=== PATIENT | female | born 1980 | race Caucasian/White ===

== ENCOUNTER 2020-05-27 11:03 | Inpatient (IN) | payer OTHER ==
[2020-05-27] MEDS ORDERED: SODIUM CHLORIDE 0.9% 1,000 ML IV STA (12:12)
--- NOTE | 2020-05-27 12:14 | ED ---
Abdominal Pain HPI - General Chief Complaint: Abdominal Pain Stated Complaint: abd pain Time Seen by Provider: 05/27/20 11:21 Source: patient Mode of arrival: ambulatory Limitations: no limitations - History of Present Illness Initial Comments: 39-year-old female patient presents to the emergency department today for evaluation of abdominal pain and vomiting. Patient states that she started to have some discomfort a couple of nights ago. States last evening the pain became more intense. States she mostly had pain in her back/flank region. States last evening the pain moved around into her abdomen. States she is having pain in the right upper and right lower quadrant. States she has been nauseated and did have episode of vomiting last night. Has not had anything to eat or drink today. Denies any fever or chills. Denies any hematuria, dysuria, urinary frequency, urinary urgency. Denies any history of surgery other than C- section. Does currently have an IUD. Patient denies any recent rash, cough, shortness of breath, chest pain, diarrhea, constipation, back pain, numbness, tingling, dizziness, weakness, headache, visual changes, or any other complaints. - Related Data Allergies Allergy/AdvReac Type Severity Reaction Status Date / Time Penicillins Allergy Rash/Hives Verified 05/27/20 11:15 Review of Systems ROS Statement: Those systems with pertinent positive or pertinent negative responses have been documented in the HPI. ROS Other: All systems not noted in ROS Statement are negative. Past Medical History Past Medical History: Asthma History of Any Multi-Drug Resistant Organisms: None Reported Past Surgical History: Section Past Psychological History: Anxiety Smoking Status: Current every day smoker Past Alcohol Use History: None Reported Past Drug Use History: Marijuana General Exam Limitations: no limitations General appearance: alert, in no apparent distress, other (Physical well- developed, well-nourished adult female patient in no acute distress. Vital signs upon presentation are temperature 98.0F, pulse 6096, respirations 18, blood pressure 117/68, pulse ox 96% on room air.) ENT exam: Present: normal exam, normal oropharynx, mucous membranes moist Respiratory exam: Present: normal lung sounds bilaterally. Absent: respiratory distress, wheezes, rales, rhonchi, stridor Cardiovascular Exam: Present: regular rate, normal rhythm, normal heart sounds. Absent: systolic murmur, diastolic murmur, rubs, gallop, clicks GI/Abdominal exam: Present: soft, tenderness (Right upper quadrant, right lower quadrant tenderness), normal bowel sounds. Absent: distended, guarding, rebound, rigid Neurological exam: Present: alert, oriented X3, CN II-XII intact Psychiatric exam: Present: normal affect, normal mood Skin exam: Present: warm, dry, intact, normal color. Absent: rash Course Vital Signs 05/27/20 11:11 Temperature 98.0 F Pulse Rate 96 Respiratory 18 Rate Blood Pressure 117/68 O2 Sat by Pulse 96 Oximetry Medical Decision Making - Medical Decision Making 39-year-old male patient presented to the emergency department today for evaluation of right-sided abdominal pain radiating through to her back. She is also having nausea and one episode of vomiting last evening. She is afebrile. Labs reviewed and did reveal white blood cell count is 17.8. CT abdomen and pelvis was obtained and did show evidence for moderate to severe acute uncomplicated appendicitis. Patient does have a penicillin ALLERGY so I did start Rocephin and Flagyl. Case was discussed with Dr. Duffy. Plan for surgery. Case discussed also with my attending Dr. Wilson. - Lab Data Result diagrams: 05/27/20 12:31 05/27/20 12:31 Lab Results 05/27/20 05/27/20 05/27/20 Range/Units 12:02 12:02 12:31 WBC 17.8 H (3.8-10.6) k/uL RBC 4.57 (3.80-5.40) m/uL Hgb 14.9 (11.4-16.0) gm/dL Hct 42.8 (34.0-46.0) % MCV 93.6 (80.0-100.0) fL MCH 32.6 (25.0-35.0) pg MCHC 34.8 (31.0-37.0) g/dL RDW 12.4 (11.5-15.5) % Plt Count 181 (150-450) k/uL MPV 7.9 Neutrophils % 87 % Lymphocytes % 7 % Monocytes % 5 % Eosinophils % 0 % Basophils % 0 % Neutrophils # 15.4 H (1.3-7.7) k/uL Lymphocytes # 1.3 (1.0-4.8) k/uL Monocytes # 0.9 (0-1.0) k/uL Eosinophils # 0.1 (0-0.7) k/uL Basophils # 0.0 (0-0.2) k/uL Sodium (137-145) mmol/L Potassium (3.5-5.1) mmol/L Chloride (98-107) mmol/L Carbon Dioxide (22-30) mmol/L Anion Gap mmol/L BUN (7-17) mg/dL Creatinine (0.52-1.04) mg/dL Est GFR (CKD-EPI)AfAm (>60 ml/min/1.73 sqM) Est GFR (CKD-EPI)NonAf (>60 ml/min/1.73 sqM) Glucose (74-99) mg/dL Plasma Lactic Acid Augustin (0.7-2.0) mmol/L Calcium (8.4-10.2) mg/dL Total Bilirubin (0.2-1.3) mg/dL AST (14-36) U/L ALT (4-34) U/L Alkaline Phosphatase (38-126) U/L Total Protein (6.3-8.2) g/dL Albumin (3.5-5.0) g/dL Lipase (23-300) U/L Urine Color Yellow Urine Appearance Clear (Clear) Urine pH 7.5 (5.0-8.0) Ur Specific [place] 1.034 (1.001-1.035) Urine Protein 1+ H (Negative) Urine Glucose (UA) Negative (Negative) Urine Ketones Negative (Negative) Urine Blood Negative (Negative) Urine Nitrite Negative (Negative) Urine Bilirubin Negative (Negative) Urine Urobilinogen <2.0 (<2.0) mg/dL Ur Leukocyte Esterase Negative (Negative) Urine RBC 7 H (0-5) /hpf Urine WBC 1 (0-5) /hpf Ur Squamous Epith Cells 2 (0-4) /hpf Urine Mucus Rare H (None) /hpf Urine HCG, Qual Not Detected (Not Detectd) 05/27/20 05/27/20 Range/Units 12:31 12:31 WBC (3.8-10.6) k/uL RBC (3.80-5.40) m/uL Hgb (11.4-16.0) gm/dL Hct (34.0-46.0) % MCV (80.0-100.0) fL MCH (25.0-35.0) pg MCHC (31.0-37.0) g/dL RDW (11.5-15.5) % Plt Count (150-450) k/uL MPV Neutrophils % % Lymphocytes % % Monocytes % % Eosinophils % % Basophils % % Neutrophils # (1.3-7.7) k/uL Lymphocytes # (1.0-4.8) k/uL Monocytes # (0-1.0) k/uL Eosinophils # (0-0.7) k/uL Basophils # (0-0.2) k/uL Sodium 136 L (137-145) mmol/L Potassium 4.1 (3.5-5.1) mmol/L Chloride 102 (98-107) mmol/L Carbon Dioxide 24 (22-30) mmol/L Anion Gap 10 mmol/L BUN 13 (7-17) mg/dL Creatinine 0.82 (0.52-1.04) mg/dL Est GFR (CKD-EPI)AfAm >90 (>60 ml/min/1.73 sqM) Est GFR (CKD-EPI)NonAf 89 (>60 ml/min/1.73 sqM) Glucose 103 H (74-99) mg/dL Plasma Lactic Acid Augustin 1.0 (0.7-2.0) mmol/L Calcium 9.7 (8.4-10.2) mg/dL Total Bilirubin 1.2 (0.2-1.3) mg/dL AST 17 (14-36) U/L ALT 13 (4-34) U/L Alkaline Phosphatase 53 (38-126) U/L Total Protein 7.0 (6.3-8.2) g/dL Albumin 4.5 (3.5-5.0) g/dL Lipase 36 (23-300) U/L Urine Color Urine Appearance (Clear) Urine pH (5.0-8.0) Ur Specific [place] (1.001-1.035) Urine Protein (Negative) Urine Glucose (UA) (Negative) Urine Ketones (Negative) Urine Blood (Negative) Urine Nitrite (Negative) Urine Bilirubin (Negative) Urine Urobilinogen (<2.0) mg/dL Ur Leukocyte Esterase (Negative) Urine RBC (0-5) /hpf Urine WBC (0-5) /hpf Ur Squamous Epith Cells (0-4) /hpf Urine Mucus (None) /hpf Urine HCG, Qual (Not Detectd) - Radiology Data Radiology results: report reviewed, image reviewed CT abdomen and pelvis is obtained. Report reviewed in its entirety. Impression by Dr. Artis shows CT findings consistent with a moderate to severe uncomplicated acute appendicitis as detailed above. Disposition Clinical Impression: Appendicitis Disposition: ADMITTED IP TO THIS [facility] Condition: Serious Referrals: None,Stated [Primary Care Provider] - 1-2 days Decision to Admit Reason: Admit from EC Decision Date: 05/27/20 Decision Time: 13:25
[2020-05-27 12:18] LABS: Appearance,Urine Clear (Clear); Bilirubin,Urine Negative (Negative); Blood,Urine Negative (Negative); Color,Urine Yellow; Glucose,Urine (UA) Negative (Negative); Ketones,Urine Negative (Negative); Leukocyte Esterase,Urine Negative (Negative); Mucus,Urine Rare /hpf; Nitrite,Urine Negative (Negative); PH, Urine 7.5 (5.0-8.0); Protein,Urine 1+ (Negative); RBC,Urine 7 /hpf (0-5); Specific Gravity,Urine 1.034 (1.001-1.035); Squamous Epithelial Cell,Urine 2 /hpf (0-4); Urobilinogen,Urine <2.0 mg/dL (<2.0); WBC,Urine 1 /hpf (0-5)
[2020-05-27 12:46] LABS: Basophils % (A) 0 %; Eosinophils # (A) 0.1 k/uL (0-0.7); Eosinophils % (A) 0 %; HCT 42.8 % (34.0-46.0); HGB 14.9 gm/dL (11.4-16.0); Lymphocytes # (A) 1.3 k/uL (1.0-4.8); Lymphocytes % (A) 7 %; MCH 32.6 pg (25.0-35.0); MCHC 34.8 g/dL (31.0-37.0); MCV 93.6 fL (80.0-100.0); Mean Platelet Volume 7.9; Monocytes # (A) 0.9 k/uL (0-1.0); Monocytes % (A) 5 %; Neutrophils # (A) 15.4 k/uL (1.3-7.7); Neutrophils % (A) 87 %; Platelet Count 181 k/uL (150-450); RBC 4.57 m/uL (3.80-5.40); RDW 12.4 % (11.5-15.5); WBC 17.8 k/uL (3.8-10.6)
--- NOTE | 2020-05-27 13:00 | CT ---
EXAMINATION TYPE: CT abdomen pelvis w con DATE OF EXAM: 05/27/2020 HISTORY: RLQ pain CT DLP: 610.8mGycm Automated Exposure Control for Dose Reduction was Utilized. CONTRAST: CT scan of the abdomen and pelvis is performed without oral but with IV Contrast, patient injected wi th 100 mL of Isovue 300. COMPARISON: None. FINDINGS: LUNG BASES: Partial visualization of right breast implant. LIVER/GB: No significant abnormality is appreciated. PANCREAS: No significant abnormality is seen. SPLEEN: No significant abnormality is seen. ADRENALS: No significant abnormality is seen. KIDNEYS: Symmetric cortical medullary uptake and excretion without hydronephrosis seen bilaterally. BOWEL: Slightly suboptimal evaluation of bowel without enteric contrast. No suspicious small or large bowel dilatation is seen. Appendix is abnormally dilated up to 11 mm ascending from low-lying cecum in the right pelvis towards the right lower quadrant. There is moderate to severe ill-defined fluid a nd fat stranding seen. No free air. No well-formed fluid collection or abscess noted. UTERUS/ADNEXA: Retroflexed uterus with central metallic IUD. Prominent draining ovarian veins bilater ally could reflect products of pelvic congestion syndrome in the appropriate clinical setting. Asymme tric slight increased sized left ovary versus right ovary with 1.8 cm rim hyperdense hypoechoic lesio n thought to reflect corpus luteal cyst from recent ovulation. LYMPH NODES: No greater than 1cm abdominal or pelvic lymph nodes are appreciated. OSSEOUS STRUCTURES: Moderate disc space narrowing lumbosacral junction. OTHER: No significant additional abnormality is seen. IMPRESSION: CT findings consistent with a moderate to severe uncomplicated acute appendicitis as deta iled above. Critical results communicated to ordering emergency care physician via telephone at time of dictation .
[2020-05-27 13:08] LABS: ALT 13 U/L (4-34); AST 17 U/L (14-36); African American GFR (CKD) >90 (>60 ml/min/1.73 sqM); Albumin 4.5 g/dL (3.5-5.0); Alkaline Phosphatase 53 U/L (38-126); Anion Gap 10 mmol/L; Blood Urea Nitrogen 13 mg/dL (7-17); Calcium 9.7 mg/dL (8.4-10.2); Carbon Dioxide 24 mmol/L (22-30); Chloride 102 mmol/L (98-107); Glucose 103 mg/dL (74-99); Lipase 36 U/L (23-300); Non-African American GFR(CKD) 89 (>60 ml/min/1.73 sqM); Potassium 4.1 mmol/L (3.5-5.1); Sodium 136 mmol/L (137-145); Total Bilirubin 1.2 mg/dL (0.2-1.3)
[2020-05-27] MEDS ORDERED: metroNIDAZOLE-NS PMX 500 MG in SALINE 1 100ML.BAG IVPB STA (13:09)
[2020-05-27] MEDS ORDERED: MORPHINE SULFATE 4 MG/ML SYRINGE IVP STA (13:10)
[2020-05-27] MEDS ORDERED: NALOXONE 0.4 MG/ML 1 ML VIAL IV PRN (13:27)
[2020-05-27] MEDS ORDERED: MORPHINE SULFATE 4 MG/ML SYRINGE IV PRN (13:27)
[2020-05-27] MEDS ORDERED: HEPARIN SODIUM,PORCINE 5,000 UNIT/ML 1 ML VIAL SQ STA (13:38)
--- NOTE | 2020-05-27 13:40 | P.GSHP ---
History of Present Illness H&P Date: 05/27/20 CHIEF COMPLAINT: Right lower quadrant abdominal pain HISTORY OF PRESENT ILLNESS: The patient is a 39 year old female who comes in with at least 1 day history of moderate right lower quadrant abdominal pain that is aching and cramping in nature. She reports making [place] goulash last night and developing crampy pain. She does report an appetite today. She did have nausea and vomiting yesterday. Additional diagnostic studies including computed tomography scan demonstrated appendicitis hence her admission. No reports of fevers or chills. She denies any previous episodes. Prior surgery includes . PAST MEDICAL HISTORY: See list and reviewed and agree PAST SURGICAL HISTORY: See list and reviewed and agree MEDICATIONS: See list and reviewed and agree ALLERGIES: See list and reviewed and agree SOCIAL HISTORY: See list and reviewed and agree FAMILY HISTORY: See list and reviewed and agree REVIEW OF ORGAN SYSTEMS: CONSTITUTIONAL: No fevers or chills. No recent weight loss. EYES: Denies any trouble with vision. No glasses. HEENT: No difficulties with hearing. No nosebleeds. No difficulty swallowing. RESPIRATORY: Denies pneumonia. Has asthma including active tobacco abuse. CARDIOVASCULAR: Denies any chest pain, palpitations, or recent heart attacks. GASTROINTESTINAL: Denies fatty food intolerance. Denies change in bowel habits and gas bloat. GENITOURINARY: Denies any blood in urine or increased urinary frequency. NEUROLOGICAL: Denies any numbness or tingling along the distal extremities. No seizure disorders or headaches. MUSCULOSKELETAL: Denies any back pain, stiffness or joint arthritis. SKIN: No current skin cancer. No rash. PSYCHIATRIC: Has depression. No suicidal thoughts. Has ADD and ADHD. Has anxiety. ENDOCRINE: Denies current thyroid disorders. Denies any blood sugar glucose intolerance. HEME/LYMPHATIC: Denies any lumps and bumps around the neck. No recent deep venous thrombosis. ALLERGY/IMMUNOLOGY: No immunoglobulin therapy. No immune deficiencies. BREAST: Denies current breast lumps, pain or nipple discharge. PHYSICAL EXAM: VITALS: Reviewed CONSTITUTIONAL: Well developed and in no acute distress. EYES: Conjuctivae without sclera icterus. Extraocular movements grossly intact. HEAD, EARS, NOSE, THROAT: Moist buccal mucosa. Head is atraumatic, normocephalic. Hears conversational speech. No nasal drainage. . NECK: Supple. No JV distention. No thyroidomegaly. RESPIRATORY: Non-labored respirations and equal bilateral excursions. No gross wheezes. CARDIOVASCULAR: Regular rate and rhythm. Extremities without moderate edema. Palpable 2+ radial pulses. ABDOMEN: Soft. Non-tender. Nondistended. LYMPH: No neck lymphadenopathy. No axillary lymphadenopathy. MUSCULOSKELETAL: Nail and fingers with good capillary refill. SKIN: Warm and well perfused with good skin turgor. NEUROLOGIC: Cranial nerves II through XII grossly intact. Sensation upper and extremities intact. No focal or lateralizing signs. PSYCH: Appropriate affect. Alert and oriented to person, place and time. Displays appropriate insight. CLINCAL LABS: Reviewed. WBC elevated over 17,000. Coronavirus negative. IMAGING: Independently reviewed CT of the abdomen and pelvis reviewed with inflammatory changes along the right lower quadrant. No evidence of bowel obstruction. Appendix dilated. Gallbladder dilated. Intrauterine device within the uterus. Right breast implant intact. This is my independent interpretation. RADIOLOGY: Report reviewed. With dilated appendix of the 11 mm. Right ovarian cyst 2 cm ASSESSMENT: 1. Acute appendicitis 2. Tobacco abuse disorder PLAN: 1. Robotic appendectomy described. 2. DVT prophylaxis 3. IV antibiotics described 4. Inpatient admission described Past Medical History Past Medical History: Asthma History of Any Multi-Drug Resistant Organisms: None Reported Past Surgical History: Section Past Psychological History: Anxiety Smoking Status: Current every day smoker Past Alcohol Use History: None Reported Past Drug Use History: Marijuana - Past Family History Father Additional Family Medical History / Comment(s): Colitis Mother Additional Family Medical History / Comment(s): Colitis Medications and Allergies Home Medications Medication Instructions Recorded Confirmed Type Multivitamins, Thera [Multivitamin 1 tab PO DAILY 05/27/20 05/27/20 History (formulary)] Allergies Allergy/AdvReac Type Severity Reaction Status Date / Time Penicillins Allergy Rash/Hives Verified 05/27/20 13:41 Surgical - Exam Vital Signs Temp Pulse Resp BP Pulse Ox 98.0 F 96 18 117/68 96 05/27/20 11:11 05/27/20 11:11 05/27/20 11:11 05/27/20 11:11 05/27/20 11:11 Results - Labs 05/27/20 12:31 05/27/20 12:31 Abnormal Lab Results - Last 24 Hours (Table) 05/27/20 05/27/20 05/27/20 Range/Units 12:02 12:31 12:31 WBC 17.8 H (3.8-10.6) k/uL Neutrophils # 15.4 H (1.3-7.7) k/uL Sodium 136 L (137-145) mmol/L Glucose 103 H (74-99) mg/dL Urine Protein 1+ H (Negative) Urine RBC 7 H (0-5) /hpf Urine Mucus Rare H (None) /hpf Diabetes panel 05/27/20 Range/Units 12:31 Sodium 136 L (137-145) mmol/L Potassium 4.1 (3.5-5.1) mmol/L Chloride 102 (98-107) mmol/L Carbon Dioxide 24 (22-30) mmol/L BUN 13 (7-17) mg/dL Creatinine 0.82 (0.52-1.04) mg/dL Glucose 103 H (74-99) mg/dL Calcium 9.7 (8.4-10.2) mg/dL AST 17 (14-36) U/L ALT 13 (4-34) U/L Alkaline Phosphatase 53 (38-126) U/L Total Protein 7.0 (6.3-8.2) g/dL Albumin 4.5 (3.5-5.0) g/dL Calcium panel 05/27/20 Range/Units 12:31 Calcium 9.7 (8.4-10.2) mg/dL Albumin 4.5 (3.5-5.0) g/dL Pituitary panel 05/27/20 Range/Units 12:31 Sodium 136 L (137-145) mmol/L Potassium 4.1 (3.5-5.1) mmol/L Chloride 102 (98-107) mmol/L Carbon Dioxide 24 (22-30) mmol/L BUN 13 (7-17) mg/dL Creatinine 0.82 (0.52-1.04) mg/dL Glucose 103 H (74-99) mg/dL Calcium 9.7 (8.4-10.2) mg/dL Adrenal panel 05/27/20 Range/Units 12:31 Sodium 136 L (137-145) mmol/L Potassium 4.1 (3.5-5.1) mmol/L Chloride 102 (98-107) mmol/L Carbon Dioxide 24 (22-30) mmol/L BUN 13 (7-17) mg/dL Creatinine 0.82 (0.52-1.04) mg/dL Glucose 103 H (74-99) mg/dL Calcium 9.7 (8.4-10.2) mg/dL Total Bilirubin 1.2 (0.2-1.3) mg/dL AST 17 (14-36) U/L ALT 13 (4-34) U/L Alkaline Phosphatase 53 (38-126) U/L Total Protein 7.0 (6.3-8.2) g/dL Albumin 4.5 (3.5-5.0) g/dL Assessment and Plan (1) Acute appendicitis Current Visit: Yes Status: Acute Code(s): K35.80 - UNSPECIFIED ACUTE APPENDICITIS SNOMED Code(s): 01824496 (2) Tobacco abuse Current Visit: Yes Status: Acute Code(s): Z72.0 - TOBACCO USE SNOMED Code(s): 563481047
[2020-05-27] MEDS: KETOROLAC 15 MG/ML 1 ML VIAL IVP SCH ×2 (13:57→23:19)
[2020-05-27] MEDS ORDERED: ACETAMINOPHEN IV (For NPO) 1,000 MG in EMPTY BAG 1 BAG IVPB ONE (14:00)
[2020-05-27] MEDS: ONDANSETRON 4 MG/2 ML VIAL IVP STA (14:01)
[2020-05-27] MEDS: SODIUM CHLORIDE 0.9% 1,000 ML IV SCH ×4 (14:02→23:21)
[2020-05-27] MEDS: ONDANSETRON 4 MG/2 ML VIAL IVP PRN (17:35)
[2020-05-27] MEDS: NICOTINE 21MG/24HR PATCH TRANSDERM SCH (20:18)
[2020-05-27] MEDS: ACETAMINOPHEN TAB 500 MG TAB PO SCH (20:23)
[2020-05-27] MEDS: HYDROmorphone 1 MG/ML 1 ML SYRINGE IVP PRN (20:24)
[2020-05-27] MEDS: metroNIDAZOLE-NS PMX 500 MG in SALINE 1 100ML.BAG IVPB SCH (23:19)
[2020-05-28] MEDS: ONDANSETRON 4 MG/2 ML VIAL IVP PRN ×2 (02:10→11:59)
[2020-05-28] MEDS: HYDROmorphone 1 MG/ML 1 ML SYRINGE IVP PRN ×2 (02:10→13:07)
[2020-05-28] MEDS: ACETAMINOPHEN TAB 500 MG TAB PO SCH ×4 (02:11→20:27)
[2020-05-28] MEDS: KETOROLAC 15 MG/ML 1 ML VIAL IVP SCH ×4 (05:38→23:56)
[2020-05-28] MEDS ORDERED: SODIUM CHLORIDE 0.9% 2,000 ML IV ONE (05:55)
[2020-05-28] MEDS: metroNIDAZOLE-NS PMX 500 MG in SALINE 1 100ML.BAG IVPB SCH ×3 (09:32→23:56)
[2020-05-28] MEDS: NICOTINE 21MG/24HR PATCH TRANSDERM SCH (10:30)
[2020-05-28 11:21] LABS: Basophils # (A) 0.03 X 10*3/uL (0.00-0.10); Basophils % (A) 0.2 %; Eosinophils # (A) 0 X 10*3/uL (0.04-0.35); Eosinophils % (A) 0 %; HCT 33.9 % (37.2-46.3); HGB 11.2 g/dL (12.0-15.0); Lymphocytes # (A) 0.61 X 10*3/uL (0.90-5.00); Lymphocytes % (A) 3.1 %; MCH 31.9 pg (27.0-32.0); MCV 96.6 fL (80.0-97.0); Mean Platelet Volume 10.8 fL (9.5-12.2); Monocytes # (A) 0.65 X 10*3/uL (0.20-1.00); Monocytes % (A) 3.4 %; Neutrophils # (A) 17.89 X 10*3/uL (1.80-7.70); Neutrophils % (A) 92.3 %; Platelet Count 140 X 10*3/uL (140-440); RBC 3.51 X 10*6/uL (4.10-5.20); RDW 13.3 % (11.5-14.5); WBC 19.37 X 10*3/uL (4.50-10.00)
[2020-05-28 12:38] LABS: Albumin 3.8 g/dL (3.80-4.90); Albumin/Globulin Ratio 2.92 (1.60-3.17); Anion Gap 8.1 mmol/L (4.00-12.00); BUN/Creat Ratio 14.44 Ratio (12.00-20.00); Carbon Dioxide 20.9 mmol/L (21.6-31.8); Globulin 1.3 g/dL (1.6-3.3); Non-African American GFR(CKD) 79.4 (60.0-200.0); Potassium 4.1 mmol/L (3.5-5.5); Total Bilirubin 0.8 mg/dL (0.3-1.2); Total Protein 5.1 g/dL (6.2-8.2)
--- NOTE | 2020-05-28 14:10 | P.PN ---
Subjective Progress Note Date: 05/28/20 CHIEF COMPLAINT: Right lower quadrant abdominal pain HISTORY OF PRESENT ILLNESS: The patient is a 39-year-old female presents with 2 day history of right lower quadrant abdominal pain. She has tolerated liquid diet was 9. This morning she had mild hypotension. Otherwise no fevers. ROS: No fevers or chills. No new chest pain. No productive sputum PHYSICAL EXAM: VITAL SIGNS: Reviewed CONSTITUTIONAL: Well developed and in no acute distress. EYES: Conjuctivae without sclera icterus. Extraocular movements grossly intact. HEAD, EARS, NOSE, THROAT: Moist buccal mucosa. Head is atraumatic, normocephalic. Hears conversational speech. No nasal drainage. NECK: Supple. No thyroidomegaly. RESPIRATORY: Non-labored respirations and equal bilateral excursions. CARDIOVASCULAR: Palpable 2+ radial pulses. Regular rate. Regular rhythm. ABDOMEN: Tender right lower quadrant. MUSCULOSKELETAL: No gross deformity of the lower extremities noted. No clubbing. No cyanosis. SKIN: Good skin turgor. Well perfused. NEUROLOGIC: Cranial nerves II through XII grossly intact. No focal or laterali zing signs. PSYCH: Appropriate affect. Alert and oriented to person, place and time. CLINICAL LABS: White blood cell count elevated over 19,000. ASSESSMENT: 1. Acute appendicitis with leukocytosis, severe PLAN: 1. Robotic appendectomy described. 2. Inpatient hospitalization for worsening leukocytosis Objective - Vital Signs Vital signs: Vital Signs Temp 98.4 F 05/28/20 08:36 Pulse 95 05/28/20 08:36 Resp 16 05/28/20 08:36 BP 94/62 05/28/20 08:36 Pulse Ox 99 05/28/20 08:36 Intake & Output 05/27/20 05/28/20 05/28/20 18:59 06:59 18:59 Intake Total 2100 Balance 2100 Weight 73.346 kg Intake: Intake, IV Titration 2100 Amount Sodium Chloride 0.9% 1, 1000 000 ml @ 75 mls/hr IV . [id number] KATHI Rx#:[id number] Sodium Chloride 0.9% 1, 1000 000 ml @ 999 mls/hr IV . Q1H1M KATHI Rx#:[id number] metroNIDAZOLE-NS PMX 500 100 mg In Saline 1 100ml.bag @ 100 mls/hr IVPB ONCE STA Rx#:[id number] Other: Voiding Method Toilet # Voids 1 0 - Labs CBC & Chem 7: 05/28/20 05:55 05/28/20 05:55 Labs: Abnormal Lab Results - Last 24 Hours (Table) 05/28/20 05/28/20 Range/Units 05:55 05:55 WBC 19.37 H (4.50-10.00) X 10*3/uL RBC 3.51 L (4.10-5.20) X 10*6/uL Hgb 11.2 L (12.0-15.0) g/dL Hct 33.9 L (37.2-46.3) % Immature Gran # 0.19 H (0.00-0.04) X 10*3/uL Neutrophils # 17.89 H (1.80-7.70) X 10*3/uL Lymphocytes # 0.61 L (0.90-5.00) X 10*3/uL Eosinophils # 0 L (0.04-0.35) X 10*3/uL Carbon Dioxide 20.9 L (21.6-31.8) mmol/L Glucose 118 H (70-110) mg/dL Calcium 8.0 L (8.7-10.3) mg/dL Total Protein 5.1 L (6.2-8.2) g/dL Globulin 1.3 L (1.6-3.3) g/dL Assessment and Plan (1) Acute appendicitis Current Visit: Yes Status: Acute Code(s): K35.80 - UNSPECIFIED ACUTE APPENDICITIS SNOMED Code(s): 94294463 (2) Tobacco abuse Current Visit: Yes Status: Acute Code(s): Z72.0 - TOBACCO USE SNOMED Code(s): 090130791
[2020-05-28] MEDS: ONDANSETRON 4 MG/2 ML VIAL IVP STA (15:25)
[2020-05-28] MEDS ORDERED: DEXAMETHASONE SOD PHOSPHATE 4 MG/ML 1 ML VIAL IVP ONE (15:25)
[2020-05-28] MEDS ORDERED: IV FLUID CONTINUATION 1,000 ML IV ONE (15:35)
[2020-05-28] MEDS ORDERED: MIDAZOLAM 2 MG/2 ML VIAL IVP ONE (15:45)
[2020-05-28] MEDS ORDERED: ONDANSETRON 4 MG/2 ML VIAL ONE (16:06)
[2020-05-28] MEDS ORDERED: SUCCINYLCHOLINE CHLORIDE 100 MG/5 ML SYR IV ONE (16:06)
[2020-05-28] MEDS ORDERED: ROCURONIUM 10 MG/ML (5 ML VIAL) IV ONE (16:06)
[2020-05-28] MEDS ORDERED: NEOSTIGMINE 1 MG/ML 10 ML VIAL ONE (16:06)
[2020-05-28] MEDS ORDERED: KETOROLAC 15 MG/ML 1 ML VIAL ONE (16:06)
[2020-05-28] MEDS ORDERED: fentaNYL (PF) 50 MCG/ML 2 ML AMP ONE (16:06)
[2020-05-28] MEDS ORDERED: PROPOFOL 10 MG/ML 20 ML VIAL IV ONE (16:06)
[2020-05-28] MEDS ORDERED: MIDAZOLAM 2 MG/2 ML VIAL ONE (16:06)
[2020-05-28] MEDS ORDERED: LIDOCAINE 1% INJ 10MG/ML (20 ML MDV) ONE (16:06)
[2020-05-28] MEDS ORDERED: HEPARIN SODIUM,PORCINE 5,000 UNIT/ML 1 ML VIAL ONE (16:06)
[2020-05-28] MEDS ORDERED: SODIUM CHLORIDE 0.9% 100 ML with metroNIDAZOLE-NS PMX 500 MG IV ONE ×2 (16:17)
[2020-05-28] MEDS ORDERED: LIDOCAINE 1%-EPI 1:100,000 20 ML VIAL SQ ONE (16:28)
[2020-05-28] MEDS ORDERED: LACTATED RINGERS 1,000 ML IV ONE (17:03)
[2020-05-28] MEDS ORDERED: METOCLOPRAMIDE 5 MG/ML 2 ML VIAL IVP PRN (17:19)
[2020-05-28] MEDS ORDERED: PROMETHAZINE 25 MG TAB PO PRN (17:19)
--- NOTE | 2020-05-28 17:33 | P.OP ---
Date of Procedure: 05/28/20 Description of Procedure: SURGEON: FLORIN FOREMAN MD Preoperative Diagnosis: 1. Acute appendicitis with sepsis 2. Tobacco use Postoperative Diagnosis: 1. Acute appendicitis with sepsis and localized rupture and localized peritonitis 2. Abdominal ascites 3. Tobacco use Procedure(s) Performed: 1. Robotic-assisted daVinci Xi laparoscopic appendectomy Anesthesia: GETA, local Estimated Blood Loss (ml): 5 Pathology: other (appendix) Condition: stable Disposition: floor Operative Findings: 1. Acute appendicitis with rupture, mid body, localized perforation 2. Terminal ileum unremarkable 3. Cecum unremarkable 4. Moderate turbulent abdominal ascites drained 5. Appendix retrocecal coursing right upper quadrant gallbladder INDICATIONS: The patient is a 39-year-old female who presents with 2 days right lower quadrant abdominal pain. Benefits and risks, including infection, open surgery, and bleeding for additional surgery was discussed at length. Informed consent was obtained. All questions of the patient were answered. DESCRIPTION: The patient was transferred to the operating room and placed in supine position. The patient had previously voided. The abdomen was then prepped and draped in standard sterile fashion as Ioban was placed along the abdomen to minimize any contamination of skin floor. After a timeout protocol was performed, attention was then brought to the left upper quadrant whereby a 0 degree 5 mm laparoscopic trocar entry was performed. The abdominal cavity was entered and insufflated to 15 mmHg pressure, which was tolerated well. Diagnostic laparoscopy demonstrated no injury to bowel, viscera or mesentery. Next a robotic 8-mm trocar was placed along the left lower quadrant, 10-cm lateral to the midline. A 12 mm port was placed along the left upper quadrant and another 8-mm port left lateral abdominal wall. Ports were placed 8 cm apart from each other including 15-20 cm away from the target anatomy of the right pelvis. The patient was then placed in Trendelenburg position, at least 14 down and right side up at least 7. The robotic da Cathy XI system was primed and docked from the left side of the patient. Using atraumatic graspers and vessel sealer, the robotic system was docked and primed as described. Instruments were interchanged by the plastic surgery assistant including graspers, robotic stapler and vessel sealer. Next, attention was brought to identify the cecum. A systematic view within the abdominal cavity was started with the small bowel which was unremarkable. The base of the cecum was unremarkable. The bilateral groins were unremarkable for inguinal hernias. The appendix was retrocecal coursing towards right upper quadrant behind the ascending colon with additional dissection required. The body of the appendix was moderately dilated with moderate periappendicitis and localized perforation along the mid body. Abdominal ascites was aspirated from the abdomen and irrigated until cleared using 1 L normal saline. The appendix was dissected free from its surrounding tissues. Blue 45 mm robotic staple loads were fired along the base of the appendix. The staple line was hemostatic. Hemostasis was checked prior to undocking the robot. The robot was undocked. I re-scrubbed into the case. The specimen was removed from the abdominal cavity with an Endo Catch bag through the 12 mm trocar at the left upper quadrant. The port site was less than 8 mm in size. All instruments and pneumoperitoneum were evacuated from the abdominal cavity. Local anesthetic was infiltrated to all wounds for postop analgesia. All incisions were also cleansed with diluted hydrogen peroxide. The incisions were closed with 4-0 Monocryl. Exofin glue was applied to the rest of the skin incisions. Optifoam dressing was placed along the left upper quadrant incision. The patient had tolerated the procedure well. The patient was extubated successfully. The patient was transferred to the postanesthesia care unit in stable condition.
[2020-05-28] MEDS ORDERED: ONDANSETRON 4 MG/2 ML VIAL IVP ONE (17:41)
[2020-05-28] MEDS ORDERED: HYDROmorphone 1 MG/ML 1 ML SYRINGE IVP ONE (17:41)
[2020-05-28] MEDS ORDERED: diphenhydrAMINE 50 MG/ML 1 ML VIAL IVP ONE (17:47)
[2020-05-28] MEDS: SODIUM CHLORIDE 0.9% 1,000 ML IV SCH (18:07)
[2020-05-29] MEDS: ACETAMINOPHEN TAB 500 MG TAB PO SCH ×4 (02:45→21:53)
[2020-05-29] MEDS: KETOROLAC 15 MG/ML 1 ML VIAL IVP SCH ×3 (05:43→18:10)
[2020-05-29] MEDS: SODIUM CHLORIDE 0.9% 1,000 ML IV SCH ×2 (05:44→18:23)
[2020-05-29] MEDS: ONDANSETRON 4 MG/2 ML VIAL IVP PRN (06:50)
[2020-05-29] MEDS: NICOTINE 21MG/24HR PATCH TRANSDERM SCH (08:51)
[2020-05-29] MEDS: metroNIDAZOLE-NS PMX 500 MG in SALINE 1 100ML.BAG IVPB SCH ×2 (08:52→16:18)
[2020-05-29 09:57] LABS: African American GFR (CKD) >90 (>60 ml/min/1.73 sqM); Anion Gap 7 mmol/L; Blood Urea Nitrogen 13 mg/dL (7-17); Carbon Dioxide 20 mmol/L (22-30); Chloride 110 mmol/L (98-107); Glucose 94 mg/dL (74-99); Non-African American GFR(CKD) 82 (>60 ml/min/1.73 sqM); Potassium 4.1 mmol/L (3.5-5.1); Sodium 137 mmol/L (137-145)
[2020-05-29 10:02] LABS: Basophils % (A) 0 %; Eosinophils % (A) 0 %; HCT 33.6 % (34.0-46.0); Lymphocytes # (A) 0.8 k/uL (1.0-4.8); Lymphocytes % (A) 6 %; MCH 31.6 pg (25.0-35.0); MCHC 32.9 g/dL (31.0-37.0); MCV 96.1 fL (80.0-100.0); Mean Platelet Volume 8.3; Monocytes # (A) 0.3 k/uL (0-1.0); Monocytes % (A) 3 %; Neutrophils # (A) 11.9 k/uL (1.3-7.7); Neutrophils % (A) 91 %; Platelet Count 141 k/uL (150-450); RBC 3.49 m/uL (3.80-5.40); RDW 13.5 % (11.5-15.5); WBC 13.1 k/uL (3.8-10.6)
--- NOTE | 2020-05-29 13:19 | P.PN ---
Subjective Progress Note Date: 05/29/20 CHIEF COMPLAINT: Appendicitis HISTORY OF PRESENT ILLNESS: The patient is a 39-year-old female who presented with acute appendicitis. She is status post appendectomy, 05/28/20. She is postop day 1. She feels better today compared to yesterday. "I feel like it got hit by a truck," as she reports generalized fatigue. She is tolerating diet. Images from surgery were reviewed and handed to her. ROS: No reports of nausea and vomiting. No fevers or chills. No new chest pain. PHYSICAL EXAM: VITAL SIGNS: Reviewed CONSTITUTIONAL: Well developed and in no acute distress. EYES: Conjuctivae without sclera icterus. Extraocular movements grossly intact. HEAD, EARS, NOSE, THROAT: Head is atraumatic, normocephalic. Hears conversational speech. No nasal drainage. RESPIRATORY: Non-labored respirations and equal bilateral excursions. CARDIOVASCULAR: Regular rate. Regular rhythm. ABDOMEN: Incisions clean dry and intact. MUSCULOSKELETAL: No gross deformity of the lower extremities noted. SKIN: Good skin turgor. Well perfused. NEUROLOGIC: Cranial nerves II through XII grossly intact. No focal or lateralizing signs. PSYCH: Appropriate affect. Alert and oriented to person, place and time. CLINICAL LABS: White blood cell count down from elevated 19.37 to 13.1. Hemoglobin stable 11.2 to 11.0, post surgery ASSESSMENT: 1. Acute perforated appendicitis localized at the body of the appendix. 2. Tobacco abuse 3. Dehydration present on admission 4. Anemia PLAN: 1. White count has improved following surgery. Continue IV antibiotics 2. Trend of hemoglobin shows dehydration as hemoglobin from 14.9 to 11.2 presurgical following fluid resuscitation. 3. Overall, WBC trending down. Continue IV antibiotics. Images reviewed. 4. Will saline lock as she reports moderate clear urine. 5. Anticipate discharge home tomorrow following continued IV antibotics and normalized white count. Objective - Vital Signs Vital signs: Vital Signs Temp 98.6 F 05/29/20 08:22 Pulse 71 05/29/20 08:22 Resp 16 05/29/20 08:22 BP 100/64 05/29/20 08:22 Pulse Ox 97 05/29/20 08:22 Intake & Output 05/28/20 05/29/20 05/29/20 18:59 06:59 18:59 Intake Total 850 Output Total 5 400 Balance 845 -400 Weight 73.346 kg Intake: IV 850 Output: Urine 400 Estimated Blood Loss 5 Other: # Bowel Movements 2 - Labs CBC & Chem 7: 05/30/20 06:06 05/30/20 06:06 Labs: Abnormal Lab Results - Last 24 Hours (Table) 05/29/20 05/29/20 Range/Units 08:33 08:33 WBC 13.1 H (3.8-10.6) k/uL RBC 3.49 L (3.80-5.40) m/uL Hgb 11.0 L D (11.4-16.0) gm/dL Hct 33.6 L (34.0-46.0) % Plt Count 141 L (150-450) k/uL Neutrophils # 11.9 H (1.3-7.7) k/uL Lymphocytes # 0.8 L (1.0-4.8) k/uL Chloride 110 H (98-107) mmol/L Carbon Dioxide 20 L (22-30) mmol/L Calcium 8.0 L (8.4-10.2) mg/dL Microbiology - Last 24 Hours (Table) 05/27/20 13:41 Blood Culture - Preliminary Blood No Growth after 24 hours Assessment and Plan (1) Acute appendicitis Current Visit: Yes Status: Acute Code(s): K35.80 - UNSPECIFIED ACUTE APPENDICITIS SNOMED Code(s): 63305363 (2) Tobacco abuse Current Visit: Yes Status: Acute Code(s): Z72.0 - TOBACCO USE SNOMED Code(s): 566450805 (3) Dehydration Current Visit: Yes Status: Acute Code(s): E86.0 - DEHYDRATION SNOMED Code(s): 13104222 (4) Anemia Current Visit: Yes Status: Acute Code(s): D64.9 - ANEMIA, UNSPECIFIED SNOMED Code(s): 108357520 (5) Perforated appendicitis Current Visit: Yes Status: Acute Code(s): K35.32 - ACUTE APPENDICITIS WITH PERF AND LOC PERITONITIS, W/O ABSCS SNOMED Code(s): 82361517
--- NOTE | 2020-05-29 19:30 | P.PN ---
Progress Note - Text Progress Note Date: 05/29/20 She is clinically doing better from this morning. We'll repeat CBC. Discharge with normal WBC
[2020-05-29 20:10] LABS: Basophils % (A) 0 %; Eosinophils % (A) 0 %; HGB 11.2 gm/dL (11.4-16.0); Lymphocytes # (A) 0.8 k/uL (1.0-4.8); Lymphocytes % (A) 7 %; MCH 32.3 pg (25.0-35.0); MCHC 33.9 g/dL (31.0-37.0); MCV 95.5 fL (80.0-100.0); Mean Platelet Volume 8.2; Monocytes # (A) 0.3 k/uL (0-1.0); Monocytes % (A) 2 %; Neutrophils # (A) 10.2 k/uL (1.3-7.7); Neutrophils % (A) 90 %; Platelet Count 132 k/uL (150-450); RBC 3.46 m/uL (3.80-5.40); RDW 12.9 % (11.5-15.5); WBC 11.3 k/uL (3.8-10.6)
[2020-05-30] MEDS: KETOROLAC 15 MG/ML 1 ML VIAL IVP SCH ×2 (00:04→07:21)
[2020-05-30] MEDS: metroNIDAZOLE-NS PMX 500 MG in SALINE 1 100ML.BAG IVPB SCH ×2 (00:06→07:19)
[2020-05-30] MEDS: ACETAMINOPHEN TAB 500 MG TAB PO SCH ×2 (03:01→08:17)
[2020-05-30] MEDS: SODIUM CHLORIDE 0.9% 1,000 ML IV SCH (03:05)
[2020-05-30 07:12] LABS: Basophils % (A) 0 %; Eosinophils % (A) 0 %; HCT 31.1 % (34.0-46.0); HGB 10.6 gm/dL (11.4-16.0); Lymphocytes # (A) 0.6 k/uL (1.0-4.8); Lymphocytes % (A) 7 %; MCH 32.7 pg (25.0-35.0); MCHC 34.2 g/dL (31.0-37.0); MCV 95.6 fL (80.0-100.0); Mean Platelet Volume 8.2; Monocytes # (A) 0.3 k/uL (0-1.0); Monocytes % (A) 3 %; Neutrophils # (A) 7.6 k/uL (1.3-7.7); Neutrophils % (A) 89 %; Platelet Count 131 k/uL (150-450); RBC 3.25 m/uL (3.80-5.40); RDW 12.9 % (11.5-15.5); WBC 8.6 k/uL (3.8-10.6)
[2020-05-30] MEDS: ONDANSETRON 4 MG/2 ML VIAL IVP PRN (07:21)
[2020-05-30 07:27] LABS: African American GFR (CKD) >90 (>60 ml/min/1.73 sqM); Anion Gap 5 mmol/L; Blood Urea Nitrogen 12 mg/dL (7-17); Calcium 7.9 mg/dL (8.4-10.2); Carbon Dioxide 19 mmol/L (22-30); Chloride 112 mmol/L (98-107); Glucose 108 mg/dL (74-99); Non-African American GFR(CKD) >90 (>60 ml/min/1.73 sqM); Potassium 3.6 mmol/L (3.5-5.1); Sodium 136 mmol/L (137-145)
[2020-05-30] MEDS: NICOTINE 21MG/24HR PATCH TRANSDERM SCH (08:17)
[2020-05-30 08:34] VITALS: BP 98/64; PULSE 84; RESP 18; TEMP 98.1
--- NOTE | 2020-05-30 17:16 | P.DS ---
Providers Date of admission: 05/28/20 08:40 Expected date of discharge: 05/30/20 Attending physician: Zehra Duffy Primary care physician: Stated None - Discharge Diagnosis(es) (1) Acute appendicitis Status: Acute (2) Tobacco abuse Status: Acute (3) Dehydration Status: Acute (4) Anemia Status: Acute (5) Perforated appendicitis Status: Acute Hospital Course: Postoperative Diagnosis: 1. Acute appendicitis with sepsis and localized rupture and localized peritonitis 2. Abdominal ascites 3. Tobacco use INDICATIONS: The patient is a 39-year-old female who presented with 2 days right lower quadrant abdominal pain. Diagnostic studies including computed tomography scan demonstrated acute appendicitis. Urgent appendectomy was described. Intraoperative findings of microperforation was found. Postoperatively, she was maintained on IV antibiotics until her white blood cell count had resolved. Prior to discharge, she was tolerating diet. Her right lower quadrant abdominal pain had improved. Follow-up in the outpatient clinic in less than 5 days was described. Procedures: Procedure(s) Performed: 1. Robotic-assisted daVinci Xi laparoscopic appendectomy Anesthesia: GETA, local Estimated Blood Loss (ml): 5 Pathology: other (appendix) Condition: stable Disposition: floor Operative Findings: 1. Acute appendicitis with rupture, mid body, localized perforation 2. Terminal ileum unremarkable 3. Cecum unremarkable 4. Moderate turbulent abdominal ascites drained 5. Appendix retrocecal coursing right upper quadrant gallbladder Patient Condition at Discharge: Stable Plan - Discharge Summary Discharge Rx Participant: No New Discharge Prescriptions: New Ibuprofen [Motrin] 600 mg PO Q8HR PRN #30 tab PRN Reason: Pain Acetaminophen Tab [Tylenol Tab] 1,000 mg PO Q6HR PRN #30 tablet PRN Reason: Pain Continue Multivitamins, Thera [Multivitamin (formulary)] 1 tab PO DAILY Discharge Medication List Multivitamins, Thera [Multivitamin (formulary)] 1 tab PO DAILY 05/27/20 [History] Acetaminophen Tab [Tylenol Tab] 1,000 mg PO Q6HR PRN #30 tablet 05/29/20 [Rx] Ibuprofen [Motrin] 600 mg PO Q8HR PRN #30 tab 05/29/20 [Rx] Follow up Appointment(s)/Referral(s): Zehra Duffy MD [STAFF PHYSICIAN] - 06/02/20 (Please call to confirm time after 8 am Monday) None,Stated [Primary Care Provider] - 1-2 days Patient Instructions/Handouts: Laparoscopic Appendectomy (DC) Activity/Diet/Wound Care/Special Instructions: No lifting over 10 pounds in 2 weeks until June 12. May shower. No bath tub soaks for two weeks until June 12. Diet as tolerated. Use Tylenol and ibuprofen or Aleve scheduled for the next 24-48 hours for best pain relief. Use ice along incisions for today to prevent swelling. Call offices to make follow up appointments. Call Dr Duffy's office with any concerns. Discharge Disposition: HOME SELF-CARE
== END 2020-05-30 10:35 | disposition home or self-care (01) | DRG 853 ==
LOC: EC 11:03 → 6PED 13:31 → 5NMEDONC 14:16 → 6PED 05-28 08:34 → OBSVTOIN 05-28 08:40
PROVIDERS: ADMIT Surgery Plastic and Reconstructive Surgery; ATTEND Surgery Plastic and Reconstructive Surgery
PROC: 8E0W4CZ Robotic Assisted Procedure of Trunk Region, Percutaneous Endoscopic Approach (ICD-10-PCS; principal; 2020-05-28 07:30)
PROC: 0DTJ4ZZ Resection of Appendix, Percutaneous Endoscopic Approach (ICD-10-PCS; principal; 2020-05-28 07:30)
DX: A41.9 Sepsis, unspecified organism (principal); K35.32 Acute appendicitis with perforation, localized peritonitis, and gangrene, without abscess; R18.8 Other ascites; I95.9 Hypotension, unspecified; D64.9 Anemia, unspecified; Z20.822 Contact with and (suspected) exposure to COVID-19; E86.0 Dehydration; J45.909 Unspecified asthma, uncomplicated; F41.9 Anxiety disorder, unspecified; F17.200 Nicotine dependence, unspecified, uncomplicated; Z71.6 Tobacco abuse counseling; Z79.899 Other long term (current) drug therapy; Z88.0 Allergy status to penicillin; Z98.891 History of uterine scar from previous surgery; Z83.79 Family history of other diseases of the digestive system
CPT/HCPCS: 36415; 74177; 80048; 80053; 81001; 81025; 83605; 83690; 85025; 87040; 87635; 88304; 96361; 96365; 96366; 96367; 96375; 99285

== ENCOUNTER → 2024-01-18 | Outpatient (CLI) | payer MEDICAID | END | disposition home or self-care (01) | LOC: RADMAMWWP 16:08 | PROVIDERS: ATTEND Family Medicine | DX: Z53.9 Procedure and treatment not carried out, unspecified reason (principal) ==